=== PATIENT | male | born 1965 | race Hispanic/Latino ===

== ENCOUNTER 2021-05-29 20:35 | Emergency (ER) | payer SELFPAY ==
[2021-05-30 00:49] LABS: ALT/SGPT 17 U/L (12-78); AST/SGOT 9 U/L (15-37); Albumin 3.9 g/dL (3.4-5.0); Alkaline Phosphatase 77 U/L (45-117); BUN Blood Urea Nitrogen 25 mg/dL (7-18); Bicarbonate 29 mmol/L (21-32); Bilirubin Direct < 0.1 mg/dL (0-0.2); Bilirubin Total 0.4 mg/dL (0.2-1.0); Glucose Level 99 mg/dL (74-106); Magnesium 2.2 mg/dL (1.8-2.4); NT PRO-BNP 107 pg/mL (<125); Potassium 3.5 mmol/L (3.5-5.1); Sodium Level 142 mmol/L (136-145); Troponin (Emerg Dept Use Only) < 0.02 ng/mL (0.0-0.045)
[2021-05-30] MEDS ORDERED: NA CHLORIDE 0.9% 1,000 ML ONE (01:25)
[2021-05-30] MEDS ORDERED: dexAMETHasone 10 MG/ML VIAL ONE (01:25)
[2021-05-30] MEDS ORDERED: IPRATROPIUM BROM 0.5MG/2.5ML ONE (01:33)
[2021-05-30] MEDS ORDERED: ALBUTEROL 2.5 MG/3 ML NEB SOL ONE (01:33)
--- NOTE | 2021-05-30 03:51 | EDPHYS ---
Physician Documentation [facility] Name: Ck Frye Age: 56 yrs Sex: Male : 1965 Arrival Date: 05/29/2021 Time: 20:38 Bed 14 Private MD: ED Physician Joce Mc HPI: 05/30 00:35 This 56 yrs old Male presents to ER via Ambulatory with complaints of Sore mh7 Throat. 00:35 The patient presents with dysphagia, of both solids and liquids. mh7 00:35 The patient describes throat pain as None. mh7 00:35 Onset: The symptoms/episode began/occurred yesterday. Severity of symptoms: At their mh7 worst the symptoms were moderate, yesterday, in the emergency department the symptoms are unchanged. Modifying factors: The symptoms are alleviated by nothing, the symptoms are aggravated by swallowing, Patient's oral intake status: unable to tolerate fluids, unable to tolerate foods. Associated signs and symptoms: Pertinent positives: dysphagia, shortness of breath Due to throat cancer, Pertinent negatives chest pain, chills, cough, diarrhea, earache, fever, flu-like symptoms, headache, nausea, rhinorrhea, sore throat, vomiting. 00:35 Patient reports recent biopsy of throat mass which suggest cancer. Reports difficulty mh7 morning swallowing liquids.. Historical: - Allergies: 05/29 22:01 No Known Allergies; kg - Home Meds: 22:01 None [Active]; kg - PMHx: 22:01 Mass on throat- waiting on results if CA; kg - PSHx: 22:01 None; kg - Immunization history:: Adult Immunizations not up to date, Client reports having NOT received the Covid vaccine. - Social history:: Smoking status: Patient/guardian denies using tobacco, Stopped _ months ago 1. ROS: 05/30 00:35 Constitutional: Negative for fever, chills, and weight loss, Eyes: Negative for injury, mh7 pain, redness, and discharge, Neck: Negative for injury, pain, and swelling, Cardiovascular: Negative for chest pain, palpitations, and edema, Abdomen/GI: Negative for abdominal pain, nausea, vomiting, diarrhea, and constipation, Back: Negative for injury and pain, : Negative for injury, bleeding, discharge, and swelling, MS/Extremity: Negative for injury and deformity, Skin: Negative for injury, rash, and discoloration, Neuro: Negative for headache, weakness, numbness, tingling, and seizure, Psych: Negative for depression, anxiety, suicide ideation, homicidal ideation, and hallucinations, Allergy/Immunology: Negative for hives, rash, and allergies, Endocrine: Negative for neck swelling, polydipsia, polyuria, polyphagia, and marked weight changes, Hematologic/Lymphatic: Negative for swollen nodes, abnormal bleeding, and unusual bruising. Exam: 00:35 Constitutional: This is a well developed, well nourished patient who is awake, alert, mh7 and in no acute distress. Head/Face: Normocephalic, atraumatic. Eyes: Pupils equal round and reactive to light, extra-ocular motions intact. Lids and lashes normal. Conjunctiva and sclera are non-icteric and not injected. Cornea within normal limits. Periorbital areas with no swelling, redness, or edema. 00:35 Chest/axilla: Normal chest wall appearance and motion. Nontender with no deformity. No lesions are appreciated. Cardiovascular: Regular rate and rhythm with a normal S1 and S2. No gallops, murmurs, or rubs. Normal PMI, no JVD. No pulse deficits. 00:35 Abdomen/GI: Soft, non-tender, with normal bowel sounds. No distension or tympany. No guarding or rebound. No evidence of tenderness throughout. Back: No spinal tenderness. No costovertebral tenderness. Full range of motion. Skin: Warm, dry with normal turgor. Normal color with no rashes, no lesions, and no evidence of cellulitis. MS/ Extremity: Pulses equal, no cyanosis. Neurovascular intact. Full, normal range of motion. Neuro: Awake and alert, GCS 15, oriented to person, place, time, and situation. Cranial nerves II-XII grossly intact. Motor strength 5/5 in all extremities. Sensory grossly intact. Cerebellar exam normal. Normal gait. Psych: Awake, alert, with orientation to person, place and time. Behavior, mood, and affect are within normal limits. 00:35 ENT: Mouth: is normal, Posterior pharynx: is normal, airway is patent, Voice: is normal. 00:35 Neck: External neck: mass, that is small, of the left submandibular area, C-spine: appears grossly normal, Thyroid: appears normal, Trachea: is midline with no obvious abnormalities, ROM/movement: is normal, Lymph nodes: lymphadenopathy is appreciated, anterior cervical nodes. 00:35 Respiratory: the patient does not display signs of respiratory distress, Respirations: normal, Breath sounds: rhonchi, that are mild, are scattered, Respiratory rate: 18 Vital Signs: 05/29 21:55 BP 148 / 98; Pulse 76; Resp 20; Temp 96.5(O); Pulse Ox 99% on R/A; Weight 43.77 kg (R); kg Height 6 ft. 0 in. (182.88 cm); Pain 0/10; 05/30 00:15 BP 143 / 93; Pulse 72; Resp 18; Pulse Ox 97% on R/A; lp1 03:00 BP 145 / 90; Pulse 100; Resp 18; Pulse Ox 98% on R/A; lp1 04:00 BP 105 / 71; Pulse 66; Resp 16; Pulse Ox 97% on R/A; lp1 05/29 21:55 Body Mass Index 13.09 (43.77 kg, 182.88 cm) kg MDM: 03:45 Differential diagnosis: bronchitis, epiglottitis, laryngitis, lymphoma, pharyngitis, mh7 retropharyngeal abcess squamous cell carcinoma viral syndrome. Data reviewed: vital signs, nurses notes, old medical records, lab test result(s), CBC, electrolytes, EKG, radiologic studies, CT scan. Data interpreted: Pulse oximetry: on room air is 98 %. Interpretation: normal. Counseling: I had a detailed discussion with the patient and/or guardian regarding: the historical points, exam findings, and any diagnostic results supporting the discharge/admit diagnosis, lab results, radiology results, the need for outpatient follow up, an ENT specialist, Oncology, to return to the emergency department if symptoms worsen or persist or if there are any questions or concerns that arise at home. Response to treatment: the patient's symptoms have markedly improved after treatment, patient is well hydrated. 03:51 Patient medically screened. [facility] 05/29 22:34 Order name: Basic Metabolic Panel kg 05/29 22:34 Order name: CBC with Diff; Complete Time: 00:35 kg 05/29 22:34 Order name: LFT's; Complete Time: 00:49 kg 05/29 22:34 Order name: Magnesium; Complete Time: 00:49 kg 05/29 22:34 Order name: NT PRO-BNP; Complete Time: 00:49 kg 05/29 22:13 Order name: CT Chest For PE Angio kg 05/29 22:34 Order name: PT-INR; Complete Time: 00:49 kg 05/29 22:34 Order name: Troponin (emerg Dept Use Only); Complete Time: 00:49 kg 05/29 22:34 Order name: D-Dimer; Complete Time: 00:49 kg 05/29 22:35 Order name: Basic Metabolic Panel; Complete Time: 00:49 EDMS 08 23:54 Order name: SARS-COV-2 RT PCR; Complete Time: 00:01 EDMS 05/29 22:34 Order name: IV Saline Lock; Complete Time: 00:07 kg 08 22:34 Order name: Labs collected and sent; Complete Time: 00:07 kg 08 22:34 Order name: O2 Per Protocol; Complete Time: 00:08 kg 05/29 22:34 Order name: O2 Sat Monitoring; Complete Time: 00:24 kg 05/29 22:50 Order name: Soft Tissue Neck W/Contr EDMS 05/30 00:50 Order name: EKG - Nurse/Tech; Complete Time: 01:20 7 Administered Medications: 01:20 Drug: NS 0.9% 1000 ml Route: IV; Rate: 1000 ml; Site: right forearm; lp1 03:00 Follow up: IV Status: Completed infusion; IV Intake: 1000ml lp1 01:20 Drug: Decadron - Dexamethasone 10 mg Route: IVP; Site: right forearm; lp1 03:00 Follow up: Response: No adverse reaction lp1 01:21 Drug: Albuterol 1.25 mg {Note: verbal order by Dr. Mc.} Route: Inhalation; lp1 01:21 Drug: AtroVENT (ipratropium) Aerosol 0.5 mg {Note: verbal order by Dr. 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 [facility] Followup: [facility] - With: Emiliana Knight MD - When: 1 - 2 days - Reason: Worsening of condition, Recheck today's complaints, Continuance of care, Re-evaluation by your physician Followup: [facility] - With: Milagro Odell MD - When: 1 - 2 days - Reason: Worsening of condition, Recheck today's complaints Discharge Instructions: - Discharge Summary Sheet 7 - Dysphagia [facility] - Dysphagia Eating Plan, Pureed [facility] Forms: - Medication Reconciliation Form [facility] - Thank You Letter [facility] - Antibiotic Education [facility] - Prescription Opioid Use [facility] Signatures: Dispatcher [employer] EDMS Kvng Booker PA PA jmm Bertha Souza, RN RN 1 Joce Mc MD MD 7 Marleny Ma, RN RN kg Corrections: (The following items were deleted from the chart) 05/29 22:10 22:06 Chest Pa And Lat (2 Views)+RAD.RAD.BRZ ordered. EDMS EDMS 22:44 22:06 CORONAVIRUS+MR.LAB.BRZ ordered. EDMS EDMS 22:50 22:14 Neck Angio+CT.RAD.BRZ ordered. EDMS EDMS
--- NOTE | 2021-05-30 03:51 | ER ---
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 Pt had the kg mass biopsy Sunday and the Cancer DrEva said the opening is very very small and if he fells short of breath to come to the ER immediately. Coronavirus screen: Client denies travel out of the [place] in the last 14 days. At this time, unable to obtain information related to travel outside the [place] Client presents with at least one sign or symptom that may indicate coronavirus-19. Standard/surgical mask placed on the client. Provider contacted for isolation considerations. Ebola Screen: Patient negative for fever greater than or equal to 101.5 degrees Fahrenheit, and additional compatible Ebola Virus Disease symptoms Patient denies exposure to infectious person. Patient denies travel to an Ebola-affected area in the 21 days before illness onset. Initial Sepsis Screen: Does the patient meet any 2 criteria? No. Patient's initial sepsis screen is negative. Does the patient have a suspected source of infection? No. Patient's initial sepsis screen is negative. Risk Assessment: Do you want to hurt yourself or someone else? Patient reports no desire to harm self or others. Onset of symptoms is unknown. 21:55 Method Of Arrival: Ambulatory kg 21:55 Acuity: MARIELLA 4 kg Triage Assessment: 22:01 General: Appears slender, emaciated, Behavior is calm, cooperative, appropriate for kg age, quiet. Pain: Complains of pain in throat. EENT: Throat Swollen, known mass waiting on results. Historical: - Allergies: 22:01 No Known Allergies; kg - Home Meds: 22:01 None [Active]; kg - PMHx: 22:01 Mass on throat- waiting on results if CA; kg - PSHx: 22:01 None; kg - Immunization history:: Adult Immunizations not up to date, Client reports having NOT received the Covid vaccine. - Social history:: Smoking status: Patient/guardian denies using tobacco, Stopped _ months ago 1. Screenin:04 Abuse screen: Denies threats or abuse. Denies injuries from another. Nutritional kg screening: No deficits noted. Tuberculosis screening: No symptoms or risk factors identified. Fall Risk None identified. Assessment: 22:06 Respiratory: Airway Respiratory effort is even, unlabored, relaxed, Respiratory pattern kg is regular, Sputum is thin. 05/30 01:30 General: Appears in no apparent distress. Behavior is calm, cooperative. Pain: Denies lp1 pain. Neuro: Level of Consciousness is awake, alert, obeys commands. Cardiovascular: Patient's skin is warm and dry. Respiratory: Respiratory effort is. GI: Abdomen is flat. : No signs and/or symptoms were reported regarding the genitourinary system. EENT: No signs and/or symptoms were reported regarding the EENT system. Derm: Skin with poor turgor Skin is dry, Skin is normal. Musculoskeletal: No deficits noted. 04:28 General: Appears in no apparent distress. Neuro: Level of Consciousness is awake, lp1 alert, obeys commands. Derm: Skin is thin, with poor turgor Skin is dry, Skin is normal. Vital Signs: 05/29 21:55 BP 148 / 98; Pulse 76; Resp 20; Temp 96.5(O); Pulse Ox 99% on R/A; Weight 43.77 kg (R); kg Height 6 ft. 0 in. (182.88 cm); Pain 0/10; 05/30 00:15 BP 143 / 93; Pulse 72; Resp 18; Pulse Ox 97% on R/A; lp1 03:00 BP 145 / 90; Pulse 100; Resp 18; Pulse Ox 98% on R/A; lp1 04:00 BP 105 / 71; Pulse 66; Resp 16; Pulse Ox 97% on R/A; lp1 05/29 21:55 Body Mass Index 13.09 (43.77 kg, 182.88 cm) kg ED Course: 05/29 20:38 Patient arrived in ED. bp1 22:01 Triage completed. kg 22:01 Arm band placed on right wrist. kg 22:04 Patient has correct armband on for positive identification. kg 22:58 CT Chest For PE Angio In Process Unspecified. EDMS 23:01 Soft Tissue Neck W/Contr In Process Unspecified. EDMS 05/30 00:07 Basic Metabolic Panel Sent. 3 00:23 Bertha Souza, RN is Primary Nurse. lp1 00:30 Joce Mc MD is Attending Physician. [facility] 03:47 Emiliana Knight MD is Referral Physician. 7 03:47 Milagro Odell MD is Referral Physician. 7 04:30 No provider procedures requiring assistance completed. No redness/swelling at site. lp1 Pressure dressing applied, IV to R FA DC'd. Administered Medications: 01:20 Drug: NS 0.9% 1000 ml Route: IV; Rate: 1000 ml; Site: right forearm; lp1 03:00 Follow up: IV Status: Completed infusion; IV Intake: 1000ml 1 01:20 Drug: Decadron - Dexamethasone 10 mg Route: IVP; Site: right forearm; lp1 03:00 Follow up: Response: No adverse reaction 1 01:21 Drug: Albuterol 1.25 mg {Note: verbal order by Dr. Mc.} Route: Inhalation; lp1 01:21 Drug: AtroVENT (ipratropium) Aerosol 0.5 mg {Note: verbal order by Dr. Mc.} Route: lp1 Inhalation; Intake: 03:00 IV: 1000ml; Total: 1000ml. lp1 Outcome: 03:51 Discharge ordered by . [facility] 04:31 Discharged to home ambulatory. lp1 04:31 Condition: good 04:31 Discharge instructions given to patient, Instructed on discharge instructions, follow up and referral plans. Demonstrated understanding of instructions, follow-up care. 04:32 Patient left the ED. lp1 Signatures: Dispatcher [employer] [facility] Bertha Souza, RN RN 1 Harriet Cleaning Maurice, MD MD [facility] Marleny Ma RN RN kg Janny Doan RN RN 3 Corrections: (The following items were deleted from the chart) 05/29 22:09 21:55 Chief complaint: Patient states: SOB, sore throat, unable to eat or swallow kg kg
[2021-05-30 04:37] VITALS: TEMP 96.5
[2021-05-30 04:41] VITALS: BP 105/71; O2SAT 97
--- NOTE | 2021-05-30 22:39 | RAD REPORT ---
EXAM DESCRIPTION: CT - Soft Tissue Neck W/Contr - 05/30/2021 12:10 am COMPARISON: None. CLINICAL HISTORY: [facility] MAIN swelling TECHNIQUE: Axial CT images are obtained from the skull base through the thoracic inlet with intraven ous contrast. Multiplanar reformats were performed. Automated exposure control was utilized on the ex am as a dose lowering technique. FINDINGS: Larynx, supraglottic, glottic, infraglottic airways: Circumferential peripheral enhancing necrotic mass is present at the level of the larynx extending superiorly. This is measured below. Nasopharynx, oropharynx, parotid glands, submandibular glands and tongue: There is a large mass circu mferentially involving the mucosa from the level of the larynx extending superiorly into the orophary ngeal soft tissues, predominantly anteriorly and more prominent on the left, extending into the base of the tongue. This measures 8.0 x 5.7 x 4.5 cm in total (measurement includes the airway centrally). Base of the tongue involvement measures approximately 3.5 x 1.5 x 2.6 cm predominantly on the left. The parotid and both submandibular glands are normal. Lymph nodes: A necrotic left level three lymph node measures 1.4 cm on series 701 image 37. Thyroid: Normal. Vascular: Unremarkable. Cervical esophagus: Normal. Musculoskeletal: Severe periodontal disease is present with no acute fracture or destructive osseous process otherwise. Visualized upper thorax and mediastinum: See concurrent CT chest report below. Visualized structures of the skull base: Visualized portions of the skull base, mastoid air cells, mi ddle ear, and paranasal sinuses are normal. IMPRESSION: Large enhancing circumferential mucosal-based mass with areas of necrosis extending from the tongue to the larynx, concerning for primary neoplasm. This results in mild narrowing of the lar yngeal airway. A 1.4 cm left level 3 necrotic cervical lymph node likely represents a metastasis. EXAM DESCRIPTION: CTA Chest, Pulmonary Embolus Protocol COMPARISON: None. CLINICAL HISTORY: SOB TECHNIQUE: CT images through the chest with IV contrast using the pulmonary embolus protocol. Multip lanar reformats. MIPS reformats are provided. Automated exposure control was utilized on this exami [facility] as a dose lowering technique. FINDINGS: Pulmonary arteries and vascular: Diagnostic quality bolus. No filling defects. Heart and mediastinum: Heart size is normal. No lymphadenopathy. Thyroid gland: Visualized portions are normal. Lungs: Severe emphysema with large left apical bulla. There is a thick-walled cavitary lesion of the right apex measuring 3.8 cm. A 7 mm nodule is noted in the right upper lobe on series 601 image 44. A few smaller nodules are noted in the anterior right upper lobe. A 5 mm left lower lobe pulmonary nod ule is present on series 601 image 146. Airways: No filling defects. No bronchiectasis. Pleura: No pneumothorax. No significant pleural effusion. Subphrenic structures: Within normal limits. Musculoskeletal and soft tissues: Within normal limits for age. IMPRESSION: 1. A thick-walled cavitary lesion of the right upper lobe measuring 3.8 cm could be in fectious or neoplastic. Multiple pulmonary nodules predominantly in the right upper lobe measuring up to 7 mm could be chronic or could represent small metastases. 2. Severe emphysema with large left apical bulla and right apical fibrosis. Electronically signed by: Kev Lindsey MD 05/29/2021 11:41 PM CDT Due to temporary technical issues with the PACS/Fluency reporting system, reports are being signed by the in house radiologist without review as a courtesy to ensure prompt reporting. The interpreting r adiologist is fully responsible for the content of the report.
--- NOTE | 2021-05-30 22:39 | RAD REPORT ---
EXAM DESCRIPTION: CT - Chest For Pe Angio - 05/30/2021 12:10 am COMPARISON: None. CLINICAL HISTORY: [facility] MAIN swelling TECHNIQUE: Axial CT images are obtained from the skull base through the thoracic inlet with intraven ous contrast. Multiplanar reformats were performed. Automated exposure control was utilized on the ex am as a dose lowering technique. FINDINGS: Larynx, supraglottic, glottic, infraglottic airways: Circumferential peripheral enhancing necrotic mass is present at the level of the larynx extending superiorly. This is measured below. Nasopharynx, oropharynx, parotid glands, submandibular glands and tongue: There is a large mass circu mferentially involving the mucosa from the level of the larynx extending superiorly into the orophary ngeal soft tissues, predominantly anteriorly and more prominent on the left, extending into the base of the tongue. This measures 8.0 x 5.7 x 4.5 cm in total (measurement includes the airway centrally). Base of the tongue involvement measures approximately 3.5 x 1.5 x 2.6 cm predominantly on the left. The parotid and both submandibular glands are normal. Lymph nodes: A necrotic left level three lymph node measures 1.4 cm on series 701 image 37. Thyroid: Normal. Vascular: Unremarkable. Cervical esophagus: Normal. Musculoskeletal: Severe periodontal disease is present with no acute fracture or destructive osseous process otherwise. Visualized upper thorax and mediastinum: See concurrent CT chest report below. Visualized structures of the skull base: Visualized portions of the skull base, mastoid air cells, mi ddle ear, and paranasal sinuses are normal. IMPRESSION: Large enhancing circumferential mucosal-based mass with areas of necrosis extending from the tongue to the larynx, concerning for primary neoplasm. This results in mild narrowing of the lar yngeal airway. A 1.4 cm left level 3 necrotic cervical lymph node likely represents a metastasis. EXAM DESCRIPTION: CTA Chest, Pulmonary Embolus Protocol COMPARISON: None. CLINICAL HISTORY: SOB TECHNIQUE: CT images through the chest with IV contrast using the pulmonary embolus protocol. Multip lanar reformats. MIPS reformats are provided. Automated exposure control was utilized on this exami [facility] as a dose lowering technique. FINDINGS: Pulmonary arteries and vascular: Diagnostic quality bolus. No filling defects. Heart and mediastinum: Heart size is normal. No lymphadenopathy. Thyroid gland: Visualized portions are normal. Lungs: Severe emphysema with large left apical bulla. There is a thick-walled cavitary lesion of the right apex measuring 3.8 cm. A 7 mm nodule is noted in the right upper lobe on series 601 image 44. A few smaller nodules are noted in the anterior right upper lobe. A 5 mm left lower lobe pulmonary nod ule is present on series 601 image 146. Airways: No filling defects. No bronchiectasis. Pleura: No pneumothorax. No significant pleural effusion. Subphrenic structures: Within normal limits. Musculoskeletal and soft tissues: Within normal limits for age. IMPRESSION: 1. A thick-walled cavitary lesion of the right upper lobe measuring 3.8 cm could be in fectious or neoplastic. Multiple pulmonary nodules predominantly in the right upper lobe measuring up to 7 mm could be chronic or could represent small metastases. 2. Severe emphysema with large left apical bulla and right apical fibrosis. Electronically signed by: Kev Lindsey MD 05/29/2021 11:41 PM CDT Due to temporary technical issues with the PACS/Fluency reporting system, reports are being signed by the in house radiologist without review as a courtesy to ensure prompt reporting. The interpreting r adiologist is fully responsible for the content of the report.
== END 2021-05-30 04:32 | disposition home or self-care (01) ==
LOC: EDSEX 20:35 → ER 20:35
DX: C14.0 Malignant neoplasm of pharynx, unspecified (principal); Z20.822 Contact with and (suspected) exposure to COVID-19
CPT/HCPCS: 36415; 70491; 71275; 80048; 80076; 82565; 83735; 83880; 84484; 85025; 85379; 85610; 93005; 96361; 96374; 99284; J1100; J7030; Q9967; U0003